=== PATIENT | male | born 1990 ===

== ENCOUNTER 2017-11-27 13:36 | Emergency (ER) | payer OTHER ==
[2017-11-27] MEDS: KETOROLAC 60 MG INJ IM (15:28)
== END 2017-11-27 15:46 | disposition home or self-care (01) ==
LOC: E/R 13:36 → FTE 15:46
DX: S39.92XA Unspecified injury of lower back, initial encounter (principal); X58.XXXA Exposure to other specified factors, initial encounter; Y92.89 Other specified places as the place of occurrence of the external cause
CPT/HCPCS: 72100; 96372; 99284-25